=== PATIENT | female | born 1985 | race Hispanic/Latino ===

== ENCOUNTER 2019-08-07 13:21 | Emergency (ER) | payer MEDICAID ==
[2019-08-07] MEDS ORDERED: FAMOTIDINE 20MG TAB 20 MG TAB ONE (13:52)
[2019-08-07] MEDS ORDERED: SUCRALFATE 1 GM TABLET ONE (13:52)
[2019-08-07] MEDS ORDERED: ONDANSETRON ODT 4 MG TAB ONE (13:53)
[2019-08-07 14:15] LABS: APPEARANCE,URINE Clear (CLEAR); BILIRUBIN,URINE Negative (NEGATIVE); COLOR,URINE Yellow (YELLOW); GLUCOSE, URINE (UA) Negative (NEGATIVE); KETONES,URINE Negative (NEGATIVE); LEUKOCYTE ESTERASE ,URINE Negative (NEGATIVE); NITRATE,URINE Negative (NEGATIVE); OCCULT BLOOD,URINE Negative (NEGATIVE); PROTEIN,URINE Negative (NEGATIVE); UROBILINOGEN,URINE 0.2 mg/dL (0.2-1.0)
[2019-08-07 14:20] LABS: HCG,QUAL RESULT NEGATIVE (NEGATIVE)
== END 2019-08-07 14:47 | disposition home or self-care (01) ==
LOC: EDH 13:21
DX: K29.70 Gastritis, unspecified, without bleeding (principal); Z98.890 Other specified postprocedural states
CPT/HCPCS: 81003; 81025